=== PATIENT | male | born 1960 | race Caucasian/White ===

== ENCOUNTER 2018-02-26 05:40 | Day surgery (SDC) | payer OTHER ==
[2018-02-26] MEDS ORDERED: SEVOFLURANE 15 MIN (07:00)
[2018-02-26] MEDS ORDERED: POLYMYXIN/BACITRACIN 1L IRRIG (07:06)
[2018-02-26] MEDS ORDERED: MIDAZOLAM 1 MG/ML 2 ML INJ (07:11)
[2018-02-26] MEDS ORDERED: ROPIVACAINE 0.5 % 30 ML VIAL (07:12)
[2018-02-26] MEDS ORDERED: BUPIVACAINE 0.5% (SDV) 30 ML INJ (07:25)
[2018-02-26] MEDS: POLYMYXIN/BACITRACIN 1L IRRIG IRR (08:23)
[2018-02-26] MEDS: ROPIVACAINE 0.5 % 30 ML VIAL (08:24)
[2018-02-26] MEDS: POVIDONE IODINE 10% 28.4 GM OINT (08:24)
[2018-02-26] MEDS ORDERED: ONDANSETRON 4 MG INJ (09:29)
[2018-02-26] MEDS ORDERED: LIDOCAINE 2% (SDV) 5 ML INJ (09:29)
[2018-02-26] MEDS ORDERED: ROCURONIUM 50 MG INJ (09:29)
[2018-02-26] MEDS ORDERED: PROPOFOL 20 ML (09:29)
[2018-02-26] MEDS ORDERED: CEFAZOLIN 1 GM INJ (09:30)
[2018-02-26] MEDS: HYDROmorphONE 1 MG/5 ML IV SYRINGE IV (10:29)
[2018-02-26] MEDS ORDERED: LABETALOL HCL 20MG INJ IV (10:30)
[2018-02-26] MEDS ORDERED: MEPERIDINE 25 MG INJ IV (10:30)
[2018-02-26] MEDS: CEFAZOLIN 1 GM/50 ML (PMX) 50 ML IVPB (10:30)
[2018-02-26] MEDS ORDERED: HYDROmorphONE 1 MG/5 ML IV SYRINGE IV (10:30)
[2018-02-26] MEDS ORDERED: FENTAnyl 50 MCG/ML VIAL IV (10:30)
[2018-02-26] MEDS ORDERED: hydrALAzine 20 MG INJ IV (10:30)
[2018-02-26] MEDS ORDERED: METOCLOPRAMIDE 10 MG INJ IV (10:30)
[2018-02-26] MEDS: ONDANSETRON 4 MG INJ IV (10:30)
[2018-02-26] MEDS ORDERED: DIPHENHYDRAMINE 50 MG INJ IV (10:30)
== END 2018-02-26 11:55 | disposition home or self-care (01) ==
LOC: SDS 05:40
DX: S86.011D Strain of right Achilles tendon, subsequent encounter (principal); X58.XXXD Exposure to other specified factors, subsequent encounter
CPT/HCPCS: 27650; 88304